=== PATIENT | male | born 1950 | race African-American/Black ===

== ENCOUNTER 2017-06-06 12:46 | Emergency (ER) | payer OTHER, MEDICARE ==
[2017-06-06 12:55] VITALS: BP 156/97
--- NOTE | 2017-06-06 13:37 | PHYS DOC ---
Adult General Chief Complaint Chief Complaint: ALCOHOL INTOXICATION HPI HPI Patient is a 66 year old male who presents with alcohol intoxication. The patient states he drank alcohol today & called 911 to be evaluated for known PTSD. Upon arrival to the ED, he is ambulatory, asking community health nurse for food & a cab pass. He denies any concerns at this time, states he used alcohol, denies drugs, denies suicidal ideation or acute health concerns. Would like to go home now without further evaluation. Review of Systems Review of Systems Constitutional: Denies fever or chills Eyes: Denies change in visual acuity HENT: Denies nasal congestion or sore throat Respiratory: Denies cough or shortness of breath Cardiovascular: Denies chest pain or edema GI: Denies abdominal pain, nausea, vomiting, bloody stools or diarrhea : Denies dysuria or hematuria Musculoskeletal: Denies back pain or joint pain Integument: Denies rash or skin lesions Neurologic: Denies headache, focal weakness or sensory changes Psychiatric: reports PTSD & EtOH abuse. All other systems were reviewed and found to be within normal limits, except as documented in this note. Physical Exam Physical Exam Constitutional: Well developed, well nourished, no acute distress, non-toxic appearance. HENT: Normocephalic, atraumatic, bilateral external ears normal, oropharynx moist, nose normal. Eyes: conjunctiva normal, no discharge. Cardiovascular: no edema. Lungs & Thorax: no respiratory distress. Abdomen: nondistended. Skin: no rash. Extremities: No deformity Neurologic: Alert and oriented X 3, ambulates with steady gait, no focal deficits noted. Psychologic: Affect normal, judgement normal, mood normal. EKG EKG [] Radiology/Procedures Radiology/Procedures [] Course & Med Decision Making Course & Med Decision Making Pertinent Labs and Imaging studies reviewed. (See chart for details) The patient wants to sign out without further evaluation. He is A&Ox3, ambulates with steady gait, not suicidal. Risks of leaving against medical advice include worsening condition, undiagnosed condition, possibly . He voices understanding & chose to sign out against medical advice. A cab was called & he departed in stable condition. [] Dragon Disclaimer Dragon Disclaimer This electronic medical record was generated, in whole or in part, using a voice recognition dictation system. Departure Departure: Impression: Primary Impression: Alcohol intoxication Disposition: 07 AGAINST MEDICAL ADVICE Condition: GUARDED KATHRYN SALAS MD Jun 06, 2017 13:37
== END 2017-06-06 13:15 | disposition left against medical advice (07) ==
LOC: ER 12:46
DX: F10.129 Alcohol abuse with intoxication, unspecified (principal); F43.10 Post-traumatic stress disorder, unspecified
CPT/HCPCS: 99283